=== PATIENT | female | born 1990 | race Caucasian/White ===

== ENCOUNTER 2021-01-18 14:54 | Inpatient (IN) | payer OTHER ==
[2021-01-18] MEDS ORDERED: LOPERAMIDE 2 MG CAP PO PRN (15:50)
[2021-01-18] MEDS ORDERED: ACETAMINOPHEN 325 MG TAB PO PRN (15:50)
[2021-01-18] MEDS ORDERED: TERBUTALINE 1 MG/1 ML INJ SUB-Q PRN (15:50)
[2021-01-18] MEDS ORDERED: METHYLERGONOVINE MALEATE 0.2 MG/ML VIAL IM PRN (15:50)
[2021-01-18] MEDS ORDERED: fentaNYL 100 MCG/2 ML INJ IV PRN (15:50)
[2021-01-18] MEDS ORDERED: BUTORPHANOL 2 MG/1 ML INJ IV PRN (15:50)
[2021-01-18] MEDS ORDERED: ePHEDrine SULFATE 50 MG/1 ML INJ IV PRN (15:50)
[2021-01-18] MEDS ORDERED: OXYTOCIN 10 UNIT/1 ML INJ IM PRN (15:50)
[2021-01-18] MEDS ORDERED: CARBOPROST TROMETHAMINE 250 MCG/1 ML INJ IM PRN (15:50)
[2021-01-18] MEDS ORDERED: miSOPROStol 200 MCG TAB PR PRN (15:50)
[2021-01-18] MEDS ORDERED: MINERAL OIL 30 ML ORAL LIQD PO PRN (15:50)
[2021-01-18] MEDS ORDERED: OXYTOCIN DRIP 30 UNITS/500 ML BAG IV SCH ×2 (16:00)
[2021-01-18 16:08] LABS: Hematocrit 38.5 % (30.3-42.9); Hemoglobin 13.2 gm/dl (10.1-14.3); Mean Corpuscular HGB Conc 34 % (30-34); Mean Corpuscular Volume 84 fl (79-97); Platelet Count 271 K/mm3 (140-440); Red Blood Count 4.57 M/mm3 (3.65-5.03); Red Cell Distribution Width 18.5 % (13.2-15.2)
[2021-01-18] MEDS ORDERED: LIDOCAINE (2%) 20 MG/1 ML VIAL 20 ML MDV INFILTRATI ONE (16:50)
[2021-01-18] MEDS ORDERED: AMPICILLIN/NS 2 GM/100 ML 2 GM/100 ML BAG IV ONE (17:21)
[2021-01-18] MEDS ORDERED: glyBURIDE 2.5 MG TAB PO ONE (18:00)
[2021-01-18] MEDS ORDERED: glyBURIDE 5 MG TAB PO ONE (18:15)
[2021-01-18] MEDS ORDERED: DINOPROSTONE 10 MG VAG SUPP VG ONE (18:21)
--- NOTE | 2021-01-18 18:35 | History and Physical Report ---
History of Present Illness Date of examination: 01/18/21 Date of admission: 01/18/2021 Chief complaint: "I'm here for my induction" History of present illness: 30 y/o presented to L&D @ 39.4 wks for a sched IOL for GDM. Pt denied VB, LOF or pain. She admitted to active FM. Pt initiated her pnc late @ 26 2/7 wks. She was started on Glyburide and co managed by MADAN r/t GDM. Pt dev carpel tunnel syndrome which was managed with wrist splints. She is rubella NI and GBS pos. Pt was admitted to L&D for cervical IOL. 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) Family/Genetic History: diabetes, hypertension, cancer Social history: no significant social history, full code - Obstetrical History Expected Date of Delivery: 01/21/21 Actual Gestation: 39 Week(s) 4 Day(s) : 1 Para: 0 Number of Living Children: 0 Medications and Allergies Allergies Allergy/AdvReac Type Severity Reaction Status Date / Time No Known Allergies Allergy Verified 01/18/21 15:22 Home Medications Medication Instructions Recorded Confirmed Last Taken Type Ergocalciferol(Vitamin D2)(Nf) 2,000 unit PO DAILY 01/18/21 01/18/21 01/17/21 History [Vitamin D (Nf)] Vit-Fe Fumar-FA [ 1 tab PO DAILY 01/18/21 01/18/21 01/17/21 History Vitamin] glyBURIDE [Glyburide] 2.5 mg PO DAILY 01/18/21 01/18/21 01/17/21 History Active Meds: Active Medications Acetaminophen (Acetaminophen 325 Mg Tab) 650 mg PO Q4H PRN PRN Reason: Pain, Mild (1-3) Butorphanol Tartrate (Butorphanol 2 Mg/1 Ml Inj) 2 mg IV Q2H PRN PRN Reason: Pain , Severe (7-10) Carboprost Tromethamine (Carboprost Tromethamine 250 Mcg/1 Ml Inj) 250 mcg IM ONCE PRN PRN Reason: Uterine Bleeding Ephedrine Sulfate (Ephedrine Sulfate 50 Mg/1 Ml Inj) 10 mg IV Q2M PRN PRN Reason: Hypotension Fentanyl (Fentanyl 100 Mcg/2 Ml Inj) 100 mcg IV Q2H PRN PRN Reason: Pain,Severe (7-10) LABOR PAIN Oxytocin/Sodium Chloride (Pitocin/Ns 30 Unit/500ml) 30 units in 500 mls @ 2 mls/hr IV TITR JANICE; Protocol Lactated Ringer's (Lactated Ringers) 1,000 mls @ 125 mls/hr IV DIRECT JANICE Oxytocin/Sodium Chloride (Pitocin/Ns 30 Unit/500ml) 30 units in 500 mls @ 40 mls/hr IV TITR JANICE; Protocol Ampicillin Sodium (Ampicillin/Ns 1 Gm/50 Ml) 1 gm in 50 mls @ 100 mls/hr IV Q4H JANICE; Protocol Loperamide HCl (Loperamide 2 Mg Cap) 2 mg PO ONCE PRN PRN Reason: give with Hemabate Methylergonovine Maleate (Methylergonovine Maleate 0.2 Mg/Ml Vial) 0.2 mg IM ONCE PRN PRN Reason: Uterine Bleeding Mineral Oil (Mineral Oil 30 Ml Oral Liqd) 30 ml PO QHS PRN PRN Reason: Constipation Misoprostol (Misoprostol 200 Mcg Tab) 800 mcg OK ONCE PRN PRN Reason: Uterine Bleeding Oxytocin (Oxytocin 10 Unit/1 Ml Inj) 10 unit IM ONCE PRN PRN Reason: Uterine Bleeding Terbutaline Sulfate (Terbutaline 1 Mg/1 Ml Inj) 0.25 mg SUB-Q ONCE PRN PRN Reason: Hyperstimulation/Hypertonicity Review of Systems All systems: negative Eyes: deferred Ears, nose, mouth and throat: deferred Breasts: normal - Vital Signs Vital signs: Vital Signs Pulse BP 99 H 119/75 01/18/21 15:19 01/18/21 15:19 Temp Pulse Resp BP Pulse Ox 98.4 F 85 20 119/75 97 01/18/21 15:37 01/18/21 18:30 01/18/21 15:37 01/18/21 15:37 01/18/21 18:30 - Physical Exam Breasts: Positive: normal Abdomen: Positive: normal appearance, soft, normal bowel sounds Genitourinary (Female): Positive: normal external genitalia, normal perenium Vulva: both: normal Vagina: Positive: normal moisture Uterus: Positive: enlarged, normal contour, other (GRAVID) Adnexa: both: normal Anus/Rectum: Positive: normal perianal skin Extremities: Positive: normal - Obstetrical FHR: auscultation normal, category 1 Uterine Contraction Monitor Mode: External Cervical Dilatation: 0.5 Cervical Effacement Percentage: 40 station: -4 Uterine Contraction Pattern: Irregular Uterine Tone Measurement Phase: Resting Uterine Contraction Intensity: Mild Results Result Diagrams: 01/18/21 15:30 Abnormal lab results 01/18/21 Range/Units 15:30 RDW 18.5 H (13.2-15.2) % All other labs normal. Assessment and Plan A: IUP@ 39.4wks GDM Pos GBS Rubella NI P: Admit to L&D for cervical IOL Continuous monitoring FSBS q 4 hr GBS protocal Offer Rubella vaccine pp Anticipate Dr Bingham consulted
[2021-01-18] MEDS ORDERED: DEXTROSE 50% IN WATER (25GM) 50 ML SYRINGE IV PRN (19:31)
[2021-01-18] MEDS ORDERED: INSULIN REGULAR, HUMAN 100 UNITS/1 ML SUB-Q SCH (20:00)
[2021-01-18] MEDS ORDERED: AMPICILLIN/NS 1 GM/50 ML 1 GM/50 ML BAG IV SCH (21:00)
[2021-01-19] MEDS: LACTATED RINGERS 1,000 ML IV SCH ×3 (00:23→13:42)
--- NOTE | 2021-01-19 08:45 | Progress Note ---
Subjective - Subjective Date of service: 01/19/21 Interval history: Cervidil removed this morning with no cervical change Plan for today: Breakfast then repeat Cervidil Pain medicine as needed Blood glucose within normal limits Maternal status reassuring Jose Botello MD Patient reports: movement normal Objective - Vital Signs Vital Signs: Vital Signs - 12hr 01/18/21 01/18/21 01/18/21 20:59 21:04 21:09 Temperature Pulse Rate 91 H 85 88 Respiratory Rate Blood Pressure Blood Pressure [Left] O2 Sat by Pulse 99 98 98 Oximetry 01/18/21 01/18/21 01/18/21 21:14 21:19 21:21 Temperature Pulse Rate 95 H 74 74 Respiratory 18 Rate Blood Pressure Blood Pressure [Left] O2 Sat by Pulse 99 98 Oximetry 01/18/21 01/18/21 01/18/21 21:24 21:29 21:34 Temperature Pulse Rate 80 80 83 Respiratory Rate Blood Pressure Blood Pressure [Left] O2 Sat by Pulse 100 99 100 Oximetry 01/18/21 01/18/21 01/18/21 21:39 21:44 21:49 Temperature Pulse Rate 74 78 78 Respiratory Rate Blood Pressure Blood Pressure [Left] O2 Sat by Pulse 99 100 98 Oximetry 01/18/21 01/18/21 01/18/21 21:54 21:59 22:04 Temperature Pulse Rate 74 75 70 Respiratory Rate Blood Pressure Blood Pressure [Left] O2 Sat by Pulse 98 97 99 Oximetry 01/18/21 01/18/21 01/18/21 22:05 22:09 22:14 Temperature Pulse Rate 76 84 76 Respiratory 20 Rate Blood Pressure 124/71 Blood Pressure [Left] O2 Sat by Pulse 99 98 Oximetry 01/18/21 01/18/21 01/18/21 22:19 22:24 22:29 Temperature Pulse Rate 81 78 73 Respiratory Rate Blood Pressure Blood Pressure [Left] O2 Sat by Pulse 98 98 98 Oximetry 01/18/21 01/18/21 01/18/21 22:34 22:35 22:39 Temperature Pulse Rate 75 77 80 Respiratory 20 Rate Blood Pressure 122/80 Blood Pressure [Left] O2 Sat by Pulse 98 98 Oximetry 01/18/21 01/18/21 01/18/21 22:44 22:49 22:54 Temperature Pulse Rate 80 77 85 Respiratory Rate Blood Pressure Blood Pressure [Left] O2 Sat by Pulse 98 98 98 Oximetry 01/18/21 01/18/21 01/18/21 22:59 23:04 23:06 Temperature Pulse Rate 79 79 76 Respiratory 18 Rate Blood Pressure 127/71 Blood Pressure [Left] O2 Sat by Pulse 98 98 Oximetry 01/18/21 01/18/21 01/18/21 23:09 23:14 23:23 Temperature Pulse Rate 93 H 86 73 Respiratory Rate Blood Pressure Blood Pressure [Left] O2 Sat by Pulse 98 98 98 Oximetry 01/18/21 01/18/21 01/18/21 23:24 23:25 23:28 Temperature 98.2 F Pulse Rate 77 74 77 Respiratory 20 Rate Blood Pressure 122/67 Blood Pressure [Left] O2 Sat by Pulse 98 Oximetry 01/18/21 01/18/21 01/18/21 23:33 23:35 23:38 Temperature Pulse Rate 92 H 77 76 Respiratory Rate Blood Pressure 127/67 Blood Pressure [Left] O2 Sat by Pulse 98 98 Oximetry 01/18/21 01/18/21 01/18/21 23:43 23:48 23:53 Temperature Pulse Rate 73 81 89 Respiratory Rate Blood Pressure Blood Pressure [Left] O2 Sat by Pulse 98 98 98 Oximetry 01/18/21 01/19/21 01/19/21 23:58 00:03 00:05 Temperature Pulse Rate 91 H 76 81 Respiratory 20 Rate Blood Pressure 106/58 Blood Pressure [Left] O2 Sat by Pulse 98 98 Oximetry 01/19/21 01/19/21 01/19/21 00:08 00:13 00:22 Temperature Pulse Rate 74 76 82 Respiratory Rate Blood Pressure Blood Pressure [Left] O2 Sat by Pulse 98 98 99 Oximetry 01/19/21 01/19/21 01/19/21 00:27 00:32 00:37 Temperature Pulse Rate 73 75 73 Respiratory Rate Blood Pressure Blood Pressure [Left] O2 Sat by Pulse 98 98 98 Oximetry 01/19/21 01/19/21 01/19/21 00:42 00:47 00:52 Temperature Pulse Rate 79 74 75 Respiratory Rate Blood Pressure Blood Pressure [Left] O2 Sat by Pulse 98 98 98 Oximetry 01/19/21 01/19/21 01/19/21 00:57 01:02 01:07 Temperature Pulse Rate 78 75 78 Respiratory Rate Blood Pressure Blood Pressure [Left] O2 Sat by Pulse 98 98 98 Oximetry 01/19/21 01/19/21 01/19/21 01:12 01:17 01:22 Temperature Pulse Rate 77 80 73 Respiratory 18 Rate Blood Pressure 105/57 Blood Pressure [Left] O2 Sat by Pulse 98 99 99 Oximetry 01/19/21 01/19/21 01/19/21 01:27 01:32 01:37 Temperature Pulse Rate 67 78 70 Respiratory Rate Blood Pressure Blood Pressure [Left] O2 Sat by Pulse 99 98 99 Oximetry 01/19/21 01/19/21 01/19/21 01:42 01:47 01:52 Temperature Pulse Rate 71 76 74 Respiratory Rate Blood Pressure Blood Pressure [Left] O2 Sat by Pulse 98 99 99 Oximetry 01/19/21 01/19/21 01/19/21 01:57 02:02 02:07 Temperature Pulse Rate 67 66 79 Respiratory Rate Blood Pressure Blood Pressure [Left] O2 Sat by Pulse 99 99 99 Oximetry 01/19/21 01/19/21 01/19/21 02:12 02:17 02:21 Temperature Pulse Rate 70 71 70 Respiratory 16 Rate Blood Pressure 113/58 Blood Pressure [Left] O2 Sat by Pulse 99 99 Oximetry 01/19/21 01/19/21 01/19/21 02:22 02:27 02:32 Temperature Pulse Rate 71 67 71 Respiratory Rate Blood Pressure Blood Pressure [Left] O2 Sat by Pulse 99 99 99 Oximetry 01/19/21 01/19/21 01/19/21 02:37 02:42 02:47 Temperature Pulse Rate 69 74 73 Respiratory Rate Blood Pressure Blood Pressure [Left] O2 Sat by Pulse 98 99 99 Oximetry 01/19/21 01/19/21 01/19/21 02:52 02:57 03:02 Temperature Pulse Rate 71 66 68 Respiratory Rate Blood Pressure Blood Pressure [Left] O2 Sat by Pulse 98 98 99 Oximetry 01/19/21 01/19/21 01/19/21 03:07 03:12 03:17 Temperature Pulse Rate 75 70 76 Respiratory Rate Blood Pressure Blood Pressure [Left] O2 Sat by Pulse 98 98 99 Oximetry 01/19/21 01/19/21 01/19/21 03:22 03:27 03:32 Temperature Pulse Rate 70 64 61 Respiratory Rate Blood Pressure Blood Pressure [Left] O2 Sat by Pulse 98 98 99 Oximetry 01/19/21 01/19/2121 03:34 03:37 03:42 Temperature 98.1 F Pulse Rate 71 66 Respiratory 16 Rate Blood Pressure Blood Pressure [Left] O2 Sat by Pulse 98 99 Oximetry 01/19/21 01/19/21 01/19/21 03:47 03:52 03:57 Temperature Pulse Rate 69 68 70 Respiratory Rate Blood Pressure Blood Pressure [Left] O2 Sat by Pulse 99 99 98 Oximetry 01/19/21 01/19/21 01/19/21 04:02 04:07 04:12 Temperature Pulse Rate 66 67 71 Respiratory Rate Blood Pressure 98/53 Blood Pressure [Left] O2 Sat by Pulse 99 99 99 Oximetry 01/19/21 01/19/21 01/19/21 04:17 04:22 04:27 Temperature Pulse Rate 67 71 69 Respiratory Rate Blood Pressure Blood Pressure [Left] O2 Sat by Pulse 99 98 99 Oximetry 01/19/21 01/19/21 01/19/21 04:32 04:37 04:42 Temperature Pulse Rate 67 70 66 Respiratory Rate Blood Pressure Blood Pressure [Left] O2 Sat by Pulse 99 99 99 Oximetry 01/19/21 01/19/21 01/19/21 04:47 04:52 04:57 Temperature Pulse Rate 66 65 66 Respiratory Rate Blood Pressure Blood Pressure [Left] O2 Sat by Pulse 99 99 100 Oximetry 01/19/21 01/19/21 01/19/21 05:02 05:07 05:08 Temperature Pulse Rate 74 65 67 Respiratory Rate Blood Pressure 116/61 Blood Pressure [Left] O2 Sat by Pulse 98 99 Oximetry 01/19/21 01/19/21 01/19/21 05:12 05:17 05:22 Temperature Pulse Rate 69 67 65 Respiratory Rate Blood Pressure Blood Pressure [Left] O2 Sat by Pulse 100 99 99 Oximetry 01/19/21 01/19/21 01/19/21 05:27 05:32 05:37 Temperature Pulse Rate 78 69 69 Respiratory Rate Blood Pressure Blood Pressure [Left] O2 Sat by Pulse 99 100 99 Oximetry 01/19/21 01/19/21 01/19/21 05:42 05:47 05:52 Temperature Pulse Rate 74 68 63 Respiratory Rate Blood Pressure Blood Pressure [Left] O2 Sat by Pulse 98 100 99 Oximetry 01/19/21 01/19/21 01/19/21 05:57 06:02 06:07 Temperature Pulse Rate 68 69 76 Respiratory Rate Blood Pressure Blood Pressure [Left] O2 Sat by Pulse 100 99 99 Oximetry 01/19/21 01/19/21 01/19/21 06:08 06:12 06:26 Temperature Pulse Rate 67 66 68 Respiratory Rate Blood Pressure 108/57 Blood Pressure [Left] O2 Sat by Pulse 99 99 Oximetry 01/19/21 01/19/21 01/19/21 06:31 06:36 06:41 Temperature Pulse Rate 61 78 68 Respiratory Rate Blood Pressure Blood Pressure [Left] O2 Sat by Pulse 98 98 98 Oximetry 01/19/21 01/19/21 01/19/21 06:46 06:51 06:56 Temperature Pulse Rate 68 68 84 Respiratory Rate Blood Pressure Blood Pressure [Left] O2 Sat by Pulse 100 98 99 Oximetry 01/19/21 01/19/21 01/19/21 07:01 07:06 07:08 Temperature Pulse Rate 67 70 66 Respiratory Rate Blood Pressure 117/70 Blood Pressure [Left] O2 Sat by Pulse 98 98 Oximetry 01/19/21 01/19/21 01/19/21 07:11 07:16 07:20 Temperature 98.1 F Pulse Rate 62 70 74 Respiratory 16 Rate Blood Pressure Blood Pressure 117/70 [Left] O2 Sat by Pulse 99 99 98 Oximetry 01/19/21 01/19/21 01/19/21 07:21 07:26 07:31 Temperature Pulse Rate 67 68 69 Respiratory Rate Blood Pressure Blood Pressure [Left] O2 Sat by Pulse 99 99 99 Oximetry 01/19/21 01/19/21 01/19/21 07:36 07:41 07:46 Temperature Pulse Rate 66 70 63 Respiratory Rate Blood Pressure Blood Pressure [Left] O2 Sat by Pulse 99 98 99 Oximetry 01/19/21 01/19/21 01/19/21 07:51 07:56 08:01 Temperature Pulse Rate 60 62 64 Respiratory Rate Blood Pressure Blood Pressure [Left] O2 Sat by Pulse 99 98 98 Oximetry 01/19/21 01/19/21 08:06 08:11 Temperature Pulse Rate 64 61 Respiratory Rate Blood Pressure Blood Pressure [Left] O2 Sat by Pulse 98 99 Oximetry - Labs Labs: Abnormal Labs 01/18/21 01/18/21 01/18/21 15:30 19:28 21:25 RDW 18.5 H POC Glucose 133 H 114 H Laboratory Results - last 24 hr 01/18/21 01/18/21 01/18/21 15:30 15:30 15:30 WBC 7.0 RBC 4.57 Hgb 13.2 Hct 38.5 MCV 84 MCH 29 MCHC 34 RDW 18.5 H Plt Count 271 POC Glucose Syphilis IgG Antibody Nonreactive Blood Type B POSITIVE Antibody Screen Negative 01/18/21 01/18/21 01/18/21 19:28 21:25 23:37 WBC RBC Hgb Hct MCV MCH MCHC RDW Plt Count POC Glucose 133 H 114 H 97 Syphilis IgG Antibody Blood Type Antibody Screen 01/19/21 01/19/21 01/19/21 01:24 03:32 05:11 WBC RBC Hgb Hct MCV MCH MCHC RDW Plt Count POC Glucose 77 91 82 Syphilis IgG Antibody Blood Type Antibody Screen
[2021-01-19] MEDS: miSOPROStol 25 MCG TAB PO PRN ×2 (08:56→14:31)
--- NOTE | 2021-01-19 21:52 | Event Note ---
Date: 01/19/21 SVE /-3.
[2021-01-20] MEDS ORDERED: OXYTOCIN DRIP 30,000 MILLIUNITS/500 ML BAG IV ONE (01:26)
[2021-01-20] MEDS ORDERED: LIDOCAINE (2%) 20 MG/1 ML VIAL 20 ML MDV INFILTRATI ONE (11:06)
[2021-01-20] MEDS ORDERED: LANOLIN/ZINC/DIMETHICONE (LANSINOH) 7 GM TP PRN (12:44)
[2021-01-20] MEDS ORDERED: diphenhydrAMINE 25 MG CAP PO PRN (12:44)
[2021-01-20] MEDS ORDERED: PROMETHAZINE 25 MG RECT SUPP PR PRN (12:44)
[2021-01-20] MEDS ORDERED: MAGNESIUM HYDROXIDE (MOM) ORAL LIQD UDC PO PRN (12:44)
[2021-01-20] MEDS ORDERED: WITCH HAZEL/ GLYCERIN PAD TP PRN (12:44)
[2021-01-20] MEDS ORDERED: PROMETHAZINE 25 MG TAB PO PRN (12:44)
[2021-01-20] MEDS ORDERED: ONDANSETRON 4 MG/2 ML INJ IV PRN (12:44)
[2021-01-20] MEDS ORDERED: HYDROcodone/ACETAMINOPHEN 5-325 MG TAB PO PRN (12:44)
[2021-01-20] MEDS ORDERED: KETOROLAC 30 MG/1 ML INJ IV PRN (12:44)
--- NOTE | 2021-01-20 12:50 | Procedure Note ---
OB Delivery Note - Delivery Date of Delivery: 01/20/21 Surgeon: LYNN LOVE Estimated blood loss: 300cc - Vaginal Delivery position: OA Intrapartum events: none Delivery induction: misoprostol Delivery augmentation: pitocin Delivery monitor: external FHT, external uterine Route of delivery: Delivery cord: 3 umbilical vessels Episiotomy: midline Delivery repair: vicryl Anesthesia: local Delivery comments: Patient pushed to deliver a viable male over a midline episiotomy with weight 320gms and 8/9. Position STEPHANIE, no nuchal cord. Spontaneous cry at [facility]. Delivery of the anterior shoulder atraumatic, remainder of delivery uncomplicated. Cord clamped cut and baby handed to waiting [facility] team. Spontaneous delivery of an intact placenta with three-vessel cord. Episiotomy repaired with no complications with vicryl in the usual fashion. Firm fundus, EBL 300ml. All sponge needle and instrument counts correct x2. Mom and baby stable to . pt had precipitous delivery and did not receive GBS prophylaxis as ordered, [facility] team notified. Jose Love MD - A at 1 minute: 8 at 5 minutes: 9 Infant Gender: Male ([id number])
[2021-01-20] MEDS: IBUPROFEN 600 MG TAB PO SCH ×2 (18:44→23:08)
[2021-01-21 01:52] LABS: Hematocrit 30.5 % (30.3-42.9); Hemoglobin 10.3 gm/dl (10.1-14.3)
[2021-01-21] MEDS: IBUPROFEN 600 MG TAB PO SCH ×2 (05:18→12:25)
--- NOTE | 2021-01-21 11:23 | Progress Note ---
Assessment and Plan A: day 1 S/P . Anemia. Gestational diabetes. P: Supplement with iron. Continue routine care. Anticipate discharge home tomorrow if patient continues to do well. Subjective - Subjective Date of service: 01/21/21 Principal diagnosis: day 1 S/P Patient reports: appetite normal, voiding normally, pain well controlled, flatus, ambulating normally, no dizzy ambulation, no nauseated [place]: doing well Objective - Vital Signs Latest vital signs: Vital Signs Temp Pulse Resp BP BP Pulse Ox 01/21/21 08:38 97.5 F L 69 17 112/76 98 01/21/21 00:30 98.6 F 71 16 107/79 01/20/21 20:26 98.6 F 77 18 106/58 99 01/20/21 15:24 97.7 F 75 17 126/74 96 01/20/21 13:57 63 98 01/20/21 13:56 64 121/72 01/20/21 13:52 65 98 01/20/21 13:47 69 99 01/20/21 13:42 70 114/73 97 01/20/21 13:37 64 98 01/20/21 13:32 60 98 01/20/21 13:27 70 98 01/20/21 13:26 66 113/62 01/20/21 13:22 62 98 01/20/21 13:17 73 98 01/20/21 13:12 64 99 01/20/21 13:11 133 H 108/54 01/20/21 13:07 61 98 01/20/21 13:02 63 98 01/20/21 12:57 62 98 01/20/21 12:56 62 105/62 01/20/21 12:52 62 97 01/20/21 12:47 61 98 01/20/21 12:42 63 98 01/20/21 12:41 61 111/58 01/20/21 12:37 68 97 01/20/21 12:32 78 97 01/20/21 12:27 67 115/57 01/20/21 12:25 65 97 01/20/21 12:20 66 100 01/20/21 12:15 73 99 01/20/21 12:11 73 99/63 01/20/21 12:10 76 95 Intake and Output 01/20/21 01/21/21 01/21/21 23:59 07:59 15:59 Intake Total 400 Output Total 1200 Balance -800 Intake: Oral 400 Output: Urine 1200 Void 1200 Other: Total, Intake Amount 200 Total, Output Amount 400 # Voids Void 1 - Exam Abdomen: Present: normal appearance, soft. Absent: distention, tenderness, guarding, rigidity Uterus: Present: normal, firm, fundal height below umbilicus. Absent: bogginess, tenderness Extremities: Present: normal. Absent: tenderness
[2021-01-21] MEDS: FERROUS SULFATE 325 MG TAB PO SCH ×2 (12:24→22:16)
[2021-01-22] MEDS: IBUPROFEN 600 MG TAB PO SCH ×3 (00:20→09:59)
[2021-01-22] MEDS ORDERED: MEASLES, MUMPS & RUBELLA 12,500 UNIT/0.5 ML VACCINE SUB-Q ONE (06:00)
--- NOTE | 2021-01-22 06:32 | Progress Note ---
Assessment and Plan A: day 2 S/P . Anemia. P: Discharge patient home today. Discussed with patient discharge instructions and warning signs. Advised patient to avoid IC, lifting, heavy housework. Patient to continue vitamins and iron supplements at home. Advised patient to follow up at [facility] in 6 weeks. Patient voiced understanding of all instructions. Subjective - Subjective Date of service: 01/22/21 Principal diagnosis: day 2 S/P Patient reports: appetite normal, voiding normally, pain well controlled, ambulating normally, no dizzy ambulation, no nauseated : doing well Objective - Vital Signs Latest vital signs: Vital Signs Temp Pulse Resp BP BP Pulse Ox 01/22/21 05:59 18 01/22/21 00:20 18 01/22/21 00:00 98.0 F 56 L 18 122/68 100 01/21/21 08:38 97.5 F L 69 17 112/76 98 Intake and Output 01/21/21 01/21/21 01/22/21 15:59 23:59 07:59 Intake Total 240 Balance 240 Intake: Oral 240 Other: Total, Intake Amount 240 # Voids Void 1 - Exam Cardiovascular: Present: Regular rate Lungs: Present: Clear to auscultation Abdomen: Present: normal appearance, soft. Absent: distention, tenderness, guarding, rigidity Uterus: Present: normal, firm, fundal height below umbilicus. Absent: bogginess, tenderness Extremities: Present: normal. Absent: tenderness, edema
--- NOTE | 2021-01-22 06:35 | Discharge Summary ---
Providers - Providers Date of Admission: 01/18/21 15:50 Date of discharge: 01/22/21 Attending physician: GUSTAVO MEADE 01/22/21 08:00 Consult to [facility] [CONS] Routine Reason For Exam: Primary care physician: GUSTAVO MEADE Hospitalization Reason for admission: induction of labor Delivery: Episiotomy: midline Other procedures: none complications: none Discharge diagnosis: IUP at term delivered baby: male Pertinent studies: Labs Hospital course: Stable hospital course Condition at discharge: Good Disposition: DC-01 TO HOME OR SELFCARE - Discharge Diagnoses (1) Term delivered Status: Acute Plan - Provider Discharge Summary Activity: routine, no sex for 6 weeks, no heavy lifting 4 weeks, no strenuous exercise Diet: routine Instructions: routine Additional instructions: Continue taking your vitamins and iron supplements at home. Follow up at [facility] in 6 weeks. Call your doctor immediately for: * Fever > 100.5 * Heavy vaginal bleeding ( >1 pad per hour) * Severe persistent headache * Shortness of breath * Reddened, hot, painful area to leg or breast - Follow up plan Follow up: GUSTAVO MEADE MD [Primary Care Provider] - 6 Weeks
[2021-01-22] MEDS: FERROUS SULFATE 325 MG TAB PO SCH (09:58)
[2021-01-22 17:19] VITALS: BP 127/85
== END 2021-01-22 16:51 | disposition home or self-care (01) | DRG 807 ==
LOC: TRG 14:54 → LD 14:55 → TRG 15:50 → LD 15:50 → OB 01-20 15:11
PROVIDERS: ADMIT Obstetrics & Gynecology; ATTEND Obstetrics & Gynecology
PROC: 10E0XZZ Delivery of Products of Conception, External Approach (ICD-10-PCS; principal; 2021-01-20)
PROC: 3E0DXGC Introduction of Other Therapeutic Substance into Mouth and Pharynx, External Approach (ICD-10-PCS; 2021-01-20)
PROC: 0W8NXZZ Division of Female Perineum, External Approach (ICD-10-PCS; 2021-01-20)
DX: O99.824 Streptococcus B carrier state complicating childbirth (principal); Z37.0 Single live birth; D64.9 Anemia, unspecified; O24.429 Gestational diabetes mellitus in childbirth, unspecified control; Z3A.39 39 weeks gestation of pregnancy; Z20.822 Contact with and (suspected) exposure to COVID-19; Z82.49 Family history of ischemic heart disease and other diseases of the circulatory system; Z83.3 Family history of diabetes mellitus; Z80.9 Family history of malignant neoplasm, unspecified
CPT/HCPCS: 36415; 59025; 59200; 82962; 85014; 85018; 85027; 86592; 86850; 86900; 86901; 90707; G0378; J0595; J2210; J2590; J7120; U0003